=== PATIENT | male | born 1955 | race Caucasian/White ===

== ENCOUNTER 2022-06-26 09:13 | Emergency (ER) | payer MEDICARE ==
[~2022-06-26] VITALS: Ht 172.7 cm; Wt 80.7 kg
[2022-06-26 10:33] LABS: BASOPHILS % (AUTO) 0.3 % (0.0-5.0); EOSINOPHILS % (AUTO) 0.5 % (0.0-8.0); HEMATOCRIT 41.4 % (42-54); LYMPHOCYTES % (AUTO) 8.8 % (21.0-51.0); MEAN CORPUSCULAR HEMOGLOBIN 28.8 pg (27.0-33.0); MEAN CORPUSCULAR HGB CONC 31.9 g/dL (32.0-36.0); MEAN CORPUSCULAR VOLUME 90.4 fL (79-99); MONOCYTES % (AUTO) 8.6 % (3.0-13.0); NEUTROPHILS % (AUTO) 81.1 % (40.0-77.0); PLATELET COUNT (AUTO) 232 K/uL (130-400); RED BLOOD CELL COUNT(AUTO) 4.58 MIL/uL (4.50-6.20); RED CELL DISTRIBUTION WIDTH 14.3 % (11.0-15.5); WHITE BLOOD COUNT (AUTO) 13.4 K/uL (4.8-10.8)
[2022-06-26 10:47] LABS: APPEARANCE,URINE TURBID (CLEAR); BILIRUBIN,URINE SMALL mg/dL (NEGATIVE); COLOR,URINE YELLOW (YELLOW); GLUCOSE, URINE (UA) NEGATIVE (NEGATIVE); KETONES,URINE 5 mg/dL (NEGATIVE); LEUKOCYTE ESTERASE ,URINE MODERATE Leu/uL (NEGATIVE); NITRATE,URINE POSITIVE (NEGATIVE); OCCULT BLOOD,URINE LARGE (NEGATIVE); PH,URINE 5.5 (5.0-8.0); PROTEIN,URINE 100 mg/dL (NEGATIVE)
[2022-06-26 10:48] LABS: CREATININE 1.8 mg/dL (0.5-1.5)
[2022-06-26] MEDS ORDERED: DOXY-469 PO (10:56)
[2022-06-26 10:57] LABS: ALBUMIN 3.5 g/dL (3.5-5.0); TOTAL PROTEIN, SERUM 7.8 g/dL (6.0-8.3)
[2022-06-26] MEDS ORDERED: DOXYCYCLINE HYCLATE 100 MG TABLET PO SCH (11:00)
[2022-06-26 11:04] LABS: BACTERIA,URINE Many /HPF (None Seen); RBC,URINE 0-1 /HPF (0-1); SQUAMOUS EPITHELIAL CELL,UR Rare /HPF (0-2); WBC,URINE TNTC /HPF (0-1)
[2022-06-26 11:10] VITALS: BP 139/87
== END 2022-06-26 11:24 | disposition home or self-care (01) ==
LOC: EDH 09:13
DX: N45.1 Epididymitis (principal); N45.2 Orchitis; I10 Essential (primary) hypertension; Z98.890 Other specified postprocedural states
CPT/HCPCS: 36415; 71045; 76870; 80053; 81001; 84484; 85025; 87077; 87088; 87186

== ENCOUNTER 2022-08-29 14:45 | Inpatient (IN) | payer MEDICARE ==
[~2022-08-29] VITALS: Ht 172.7 cm; Wt 80.8 kg
[~2022-08-29 14:45] MED LIST: DOXY-469 PO
[2022-08-29 15:35] LABS: HEMATOCRIT 43.3 % (42-54); MEAN CORPUSCULAR HEMOGLOBIN 29.1 pg (27.0-33.0); MEAN CORPUSCULAR HGB CONC 32.8 g/dL (32.0-36.0); MEAN CORPUSCULAR VOLUME 88.7 fL (79-99); RED BLOOD CELL COUNT(AUTO) 4.88 MIL/uL (4.50-6.20); RED CELL DISTRIBUTION WIDTH 14.1 % (11.0-15.5); WHITE BLOOD COUNT (AUTO) 13.7 K/uL (4.8-10.8)
[2022-08-29 15:55] LABS: CREATININE 2.4 mg/dL (0.5-1.5); POTASSIUM 4.3 mmol/L (3.5-5.1)
[2022-08-29] MEDS ORDERED: 0.9%NACL 1000ML 1,000 ML IV ONE ×2 (16:00→20:00)
[2022-08-29 16:13] LABS: ALBUMIN 3.9 g/dL (3.5-5.0); TOTAL PROTEIN, SERUM 7.7 g/dL (6.0-8.3)
[2022-08-29] MEDS ORDERED: ZOSYN 3.375GM +NS 50ML IVPB ONE (20:00)
[2022-08-29] MEDS ORDERED: ACETAMINOPHEN 325 MG TAB PO PRN ×2 (20:30)
[2022-08-29] MEDS ORDERED: ONDANSETRON 4MG INJ IV PRN (20:30)
[2022-08-29] MEDS ORDERED: LACTATED RINGERS 1000ML 2,052 ML IV ONE (20:30)
[2022-08-29] MEDS ORDERED: MORPHINE 2 MG SYG IV PRN (20:30)
[2022-08-29] MEDS ORDERED: MORPHINE 4 MG SYG IV PRN (20:30)
[2022-08-29] MEDS: ZOSYN 3.375GM+NS 50ML 50 ML IVPB SCH (21:00)
[2022-08-29 21:03] LABS: APPEARANCE,URINE CLOUDY (CLEAR); BILIRUBIN,URINE NEGATIVE (NEGATIVE); COLOR,URINE LIGHT-ORANGE (YELLOW); GLUCOSE, URINE (UA) NEGATIVE (NEGATIVE); KETONES,URINE NEGATIVE (NEGATIVE); LEUKOCYTE ESTERASE ,URINE 500 Leu/uL (NEGATIVE); NITRATE,URINE NEGATIVE (NEGATIVE); OCCULT BLOOD,URINE LARGE (NEGATIVE); PH,URINE 5.5 (5.0-8.0); PROTEIN,URINE 70 mg/dL (NEGATIVE); UROBILINOGEN,URINE 0.2 mg/dL (0.2-1.0)
[2022-08-29 21:16] LABS: CREATININE,URINE RANDOM 235 mg/dL (30-135); SODIUM,URINE RANDOM 55 mmol/l (40-220)
[2022-08-29 21:19] LABS: BACTERIA,URINE MOD /HPF (None Seen); MUCUS,URINE RARE LPF (None Seen); OTHER CASTS, URINE 4 /LPF (None Seen); WBC,URINE TNTC /HPF (0-1)
[2022-08-29 22:51] VITALS: BP 112/71
[2022-08-29] MEDS: LACTATED RINGERS 1000ML 1,000 ML IV SCH (23:22)
[2022-08-30 03:56] LABS: BASOPHILS % (AUTO) 0.6 % (0.0-5.0); EOSINOPHILS % (AUTO) 2.2 % (0.0-8.0); HEMATOCRIT 32.2 % (42-54); LYMPHOCYTES % (AUTO) 24.6 % (21.0-51.0); MEAN CORPUSCULAR HEMOGLOBIN 29.2 pg (27.0-33.0); MEAN CORPUSCULAR HGB CONC 32.6 g/dL (32.0-36.0); MEAN CORPUSCULAR VOLUME 89.4 fL (79-99); MONOCYTES % (AUTO) 10.9 % (3.0-13.0); NEUTROPHILS % (AUTO) 61.4 % (40.0-77.0); PLATELET COUNT (AUTO) 206 K/uL (130-400); RED CELL DISTRIBUTION WIDTH 14.3 % (11.0-15.5); WHITE BLOOD COUNT (AUTO) 6.9 K/uL (4.8-10.8)
[2022-08-30 04:06] LABS: INR 1.06 (0.85-1.15); PROTHROMBIN TIME 11.5 SEC (9.6-11.6)
[2022-08-30 04:07] LABS: PARTIAL THROMBOPLASTIN TIME 28.2 SEC (26.3-35.5)
[2022-08-30 04:12] VITALS: BP 115/74
[2022-08-30 04:12] LABS: CREATININE 1.5 mg/dL (0.5-1.5); MAGNESIUM 1.7 mg/dL (1.80-2.40); PHOSPHORUS 3.2 mg/dL (2.5-4.9); POTASSIUM 4.2 mmol/L (3.5-5.1)
[2022-08-30 08:01] VITALS: BP 134/73
[2022-08-30] MEDS ORDERED: ENOXAPARIN SODIUM 40 MG/0.4 ML SYRINGE SQ SCH (09:00)
[2022-08-30] MEDS ORDERED: LISI20TA24 PO (09:11)
[2022-08-30] MEDS ORDERED: TAMS-1 PO (09:11)
[2022-08-30] MEDS ORDERED: HYDR12.54 PO (09:11)
[2022-08-30] MEDS ORDERED: ROSU20TA31 PO (09:11)
[2022-08-30] MEDS: FAMOTIDINE 20MG VIAL IV SCH (11:25)
[2022-08-30] MEDS: ZOSYN 3.375GM+NS 50ML 50 ML IVPB SCH ×2 (11:26→21:39)
[2022-08-30 12:07] VITALS: BP 123/71
[2022-08-30] MEDS: LISINOPRIL 20 MG TABLET PO SCH (13:03)
[2022-08-30 14:00] LABS: MEAN CORPUSCULAR HEMOGLOBIN 28.8 pg (27.0-33.0); MEAN CORPUSCULAR HGB CONC 31.5 g/dL (32.0-36.0); MEAN CORPUSCULAR VOLUME 91.6 fL (79-99); RED BLOOD CELL COUNT(AUTO) 3.71 MIL/uL (4.50-6.20); RED CELL DISTRIBUTION WIDTH 14.4 % (11.0-15.5); WHITE BLOOD COUNT (AUTO) 7.2 K/uL (4.8-10.8)
[2022-08-30 17:03] VITALS: BP 124/74
[2022-08-30 19:34] VITALS: BP 133/80
[2022-08-30] MEDS ORDERED: Vitamin B Complex/Vit C/Folic Acid PO ONE (20:00)
[2022-08-30] MEDS ORDERED: ATORVASTATIN 40 MG TABLET PO SCH (21:00)
[2022-08-30] MEDS ORDERED: TAMSULOSIN HCL 0.4 MG CAP.ER.24H PO SCH (21:00)
[2022-08-30 23:07] VITALS: BP 122/75
[2022-08-31] MEDS: LACTATED RINGERS 1000ML 1,000 ML IV SCH (03:19)
[2022-08-31 03:20] VITALS: BP 115/70
[2022-08-31 03:44] LABS: HEMATOCRIT 34.6 % (42-54); MEAN CORPUSCULAR HEMOGLOBIN 29.1 pg (27.0-33.0); MEAN CORPUSCULAR HGB CONC 31.5 g/dL (32.0-36.0); MEAN CORPUSCULAR VOLUME 92.3 fL (79-99); RED BLOOD CELL COUNT(AUTO) 3.75 MIL/uL (4.50-6.20); RED CELL DISTRIBUTION WIDTH 14.3 % (11.0-15.5); WHITE BLOOD COUNT (AUTO) 7.6 K/uL (4.8-10.8)
[2022-08-31 04:03] LABS: CREATININE 1.2 mg/dL (0.5-1.5); MAGNESIUM 1.8 mg/dL (1.80-2.40); PHOSPHORUS 3.4 mg/dL (2.5-4.9); URIC ACID 7.4 mg/dL (2.6-7.2)
[2022-08-31 04:12] LABS: % IRON SATURATION 18.5 % (30-44)
[2022-08-31 08:00] VITALS: BP 116/70
[2022-08-31] MEDS: LISINOPRIL 20 MG TABLET PO SCH (08:09)
[2022-08-31] MEDS: ZOSYN 3.375GM+NS 50ML 50 ML IVPB SCH (08:09)
[2022-08-31] MEDS: FAMOTIDINE 20MG VIAL IV SCH (08:10)
[2022-08-31] MEDS ORDERED: HYDROCHLOROTHIAZIDE 25 MG TABLET PO SCH (09:00)
[2022-08-31 11:26] VITALS: BP 114/64
== END 2022-08-31 15:30 | disposition home or self-care (01) | DRG 871 ==
LOC: EDH 14:45 → EDHIP 20:19 → 2AH 22:36
PROVIDERS: ADMIT Internal Medicine; ATTEND Internal Medicine
DX: A41.9 Sepsis, unspecified organism (principal); K57.33 Diverticulitis of large intestine without perforation or abscess with bleeding; N99.820 Postprocedural hemorrhage of a genitourinary system organ or structure following a genitourinary system procedure; N39.0 Urinary tract infection, site not specified; N17.9 Acute kidney failure, unspecified; K92.1 Melena; E78.00 Pure hypercholesterolemia, unspecified; Y65.8 Other specified misadventures during surgical and medical care; I10 Essential (primary) hypertension; N40.0 Benign prostatic hyperplasia without lower urinary tract symptoms; Z87.440 Personal history of urinary (tract) infections
CPT/HCPCS: 36415; 74176; 76775; 80048; 80053; 81001; 82270; 82550; 82570; 82728; 83540; 83550; 83605; 83735; 83935; 84100; 84145; 84300; 84484; 84550; 85025; 85027; 85610; 85730; 86850; 86900; 86901; 87040; 87088; 93005; G0378; J1650; J2543; J3490; J7030; J7120

== ENCOUNTER → 2022-09-10 | Outpatient (CLI) | payer MEDICARE ==
[~2022-09-10] MED LIST changes: -DOXY-469 PO; +HYDR12.54 PO; +LISI20TA24 PO; +REGADENOSON 0.4 MG/5 ML PF SYG IVP ONE; +ROSU20TA31 PO; +TAMS-1 PO
== END | disposition home or self-care (01) ==
LOC: SHCH 08:20
PROVIDERS: ATTEND Internal Medicine Cardiovascular Disease
DX: R93.1 Abnormal findings on diagnostic imaging of heart and coronary circulation (principal); R01.1 Cardiac murmur, unspecified; I49.3 Ventricular premature depolarization; I25.9 Chronic ischemic heart disease, unspecified; I10 Essential (primary) hypertension; E78.5 Hyperlipidemia, unspecified; Z87.891 Personal history of nicotine dependence; Z79.82 Long term (current) use of aspirin; Z79.899 Other long term (current) drug therapy
CPT/HCPCS: 78452; 96374; 93017; J2785; A9500 ×2

== ENCOUNTER → 2024-08-27 | Outpatient (CLI) | payer MEDICARE ==
[~2024-08-27] MED LIST changes: -REGADENOSON 0.4 MG/5 ML PF SYG IVP ONE; -ROSU20TA31 PO; +ROSU20TA98 PO
--- NOTE | 2024-08-27 13:35 | HMCIMG ---
Exam Type: CT ABD/PEL WO CON RENAL/APPY Clinical Information: UTI Comparison: None Contrast: 100 cc's Isovue 370 IV, no complications or adverse reactions CT Dose Index (CTDI): 31.60 mGy Dose Length Product (DLP): 1740.80 total mGy-cm Findings: No evidence of nephro or ureterolithiasis is found. No hydronephrosis or ureteral dilatation is seen. Left renal parenchymal calcification. Left renal simple cyst. The lung bases are clear. The stomach is unremarkable. It shows no wall thickening. No gross ulceration is seen. It is not overly distended. There are no surrounding inflammatory changes. No wall lesions are identified to suggest cancer. The spleen is unremarkable. It is not enlarged. The pancreas shows normal anatomy. It is not fatty replaced. It shows no lesions. The pancreatic duct is not dilated. The gallbladder is unremarkable. It shows no cholelithiasis. The gallbladder wall is normal in thickness. There is no pericholecystic fluid. The is no acute or chronic inflammation noted. The adrenal glands are unremarkable. There is no enlargement. No lesions are noted. The liver is unremarkable. It shows no focal masses. The appendix is unremarkable. It shows no evidence of inflammation. No appendicolith is seen. The small bowel is unremarkable. There is no evidence of dilatation to suggest obstruction. No evidence of adynamic ileus is seen. There is no small bowel wall thickening to suggest enteritis. There is diverticulosis. There is no evidence of acute inflammation to suggest diverticulitis. The colon is otherwise unremarkable. The urinary bladder is unremarkable. There is no wall thickening to suggest tumor or inflammation. There are no intraluminal calculi. There are no diverticula. There is no evidence of chronic bladder outlet obstruction. There is no evidence of urinary bladder distention to suggest urinary retention. The other pelvic structures are unremarkable. The bony and vascular structures are unremarkable for the patient's age. IMPRESSION: No acute pathology. This study was performed using dose reduction techniques to include automated exposure control and/or adjustment of the mA and/or kV according to patient size.
--- NOTE | 2024-08-27 14:30 | HMCIMG ---
Exam Type: US RENAL SONOGRAM Clinical Information: UTI Comparison: None Findings: Both kidneys are normal in size and echogenicity. No hydronephrosis seen. Bilateral simple cysts. Left renal nonobstructing calculus. Prostate is normal in diameter and the urinary bladder shows no significant retained urine. No calculi seen in the bladder. IMPRESSION: Left nonobstructing nephrolithiasis. Bilateral simple renal cysts.
== END | disposition home or self-care (01) ==
LOC: RAH 12:10
PROVIDERS: ATTEND Urology
DX: N28.1 Cyst of kidney, acquired (principal); N39.0 Urinary tract infection, site not specified; K57.90 Diverticulosis of intestine, part unspecified, without perforation or abscess without bleeding; N20.0 Calculus of kidney
CPT/HCPCS: 74176; 76770